=== PATIENT | male | born 1970 | race Caucasian/White ===

== ENCOUNTER 2016-09-11 15:41 | Emergency (ER) | payer BC | END 2016-09-11 19:50 | disposition home or self-care (01) | LOC: ER1 15:41 | DX: N45.1 Epididymitis (principal); I10 Essential (primary) hypertension | CPT/HCPCS: 76870; 81001; 96372; 99284; J0696 ==

== ENCOUNTER → 2016-11-29 | Outpatient (CLI) | payer BC | LOC: KOH-I 15:26 | DX: M25.512 Pain in left shoulder (principal) | CPT/HCPCS: 73030 ==